=== PATIENT | female | born 1975 | race Caucasian/White ===

== ENCOUNTER 2016-06-29 08:34 | Day surgery (SDC) | payer OTHER ==
[2016-06-28 14:47] LABS: MANUAL DIFF NEEDED? NO
[2016-06-28 14:51] LABS: BASO% 0.3 % (0.0-0.8); EOS# 0.06 X1000 (0.0-0.7); EOS% 0.9 % (0.0-10.0); HEMATOCRIT 40.7 % (37.0-47.0); HEMOGLOBIN 13.4 g/dL (12.0-16.0); LYMPH# 2.54 X1000 (1.2-3.4); LYMPH% 37.7 % (20.5-51.1); MCH 29.8 PG (27-31); MCHC 32.9 g/dL (33-37); MCV 90.4 FL (81-99); MONO# 0.43 X1000 (0.11-0.59); MONO% 6.4 % (1.7-9.3); MPV 10.3 FL (7.4-10.4); NEUT% 54.7 % (42.2-75.2); PLT 188 X1000 (130-400)
[2016-06-28 15:21] LABS: AGAP 12; BUN 10 mg/dL (8-22); CALCIUM 9.5 mg/dL (8.8-10.2); CHLORIDE 104 mmol/L (98-107); COSMO 279; POTASSIUM 4.1 mmol/L (3.5-5.1); SODIUM 141 mmol/L (136-145); TCO2 25 mmol/L (25-35)
[2016-06-29] MEDS ORDERED: LR 1,000 ML ONE ×2 (09:12→15:11)
[2016-06-29] MEDS ORDERED: PEPCID ONE (09:12)
[2016-06-29] MEDS ORDERED: REGLAN ONE (09:12)
[2016-06-29] MEDS ORDERED: DILAUDID ONE (09:19)
[2016-06-29] MEDS ORDERED: TRANSDERM-SCOP ONE (09:19)
[2016-06-29] MEDS ORDERED: ROBINUL ONE (09:20)
[2016-06-29] MEDS ORDERED: ROCEPHIN 1 GM/NS 50 ML IV ONE (09:30)
[2016-06-29] MEDS ORDERED: XYLOCAINE 2% JELLY UROJECT ONE (13:45)
[2016-06-29] MEDS ORDERED: DIPRIVAN 1% ONE (14:05)
[2016-06-29] MEDS ORDERED: FENTANYL ONE (14:05)
[2016-06-29] MEDS: MORPHINE ONE ×5 (14:10→14:30)
[2016-06-29] MEDS: PHENERGAN ONE ×2 (14:40→14:50)
[2016-06-29] MEDS ORDERED: PYRIDIUM ONE (14:57)
[2016-06-29] MEDS ORDERED: PERCOCET-5 ONE (14:57)
[2016-06-29] MEDS ORDERED: ZOFRAN ONE (15:11)
[2016-06-29] MEDS ORDERED: XYLOCAINE-MPF 2% ONE (15:11)
[2016-06-29] MEDS ORDERED: DECADRON ONE (15:11)
[2016-06-29] MEDS ORDERED: QUELICIN (DOSE) ONE (15:11)
--- NOTE | 2016-06-29 15:31 | Diag Imaging Result Document ---
PROCEDURE NAME: RETROGRADES 2 OR 3 FILMS - 06/29/2016 BILATERAL URETEROGRAMS: COMPARISON: None. FINDINGS: The exam was performed by the patient's urologist. Three images were submitted. There was an ill-defined filling defect in the right UPJ and proximal right ureter. There was some right-sided hydronephrosis. The left side appears normal. IMPRESSION: Right-sided hydronephrosis. Lobular, rather large filling defect of the right UPJ and proximal right ureter. A tumor is suspected here.
[2016-06-29 16:20] VITALS: BP 125/78
--- NOTE | 2016-06-29 16:22 | OPERATIVE NOTE ---
PROCEDURE DATE: 06/29/2016 PREOPERATIVE DIAGNOSES: 1. Suprapubic pain. 2. Recurrent urinary tract infection. 3. Overactive bladder. 4. Rule out interstitial cystitis. 5. Synthetic vaginal mesh, rule out perforation to the urethra or the bladder. POSTOPERATIVE DIAGNOSES: 1. No evidence of any interstitial cystitis. 2. Urethral stenosis with significantly trabeculated bladder. No evidence of mesh coming out of the vagina, urethra, or the bladder. PROCEDURE: 1. Cystoscopy. 2. Bilateral retrograde pyelogram. 3. Hydrodistention. 4. Urethral dilatation. 5. Vaginoscopy. ANESTHESIA: General. SURGEON: José Miguel Alejandro MD DESCRIPTION OF PROCEDURE: The patient and her were explained about the risks and benefits and about the procedure itself. She was taken to the operating room and was prepped and draped in dorsal lithotomy position. On gross inspection, there was no significant cystocele or rectocele. There may be a mild degree of cystocele, rectocele, which were within normal limits. I did not see any sling or mesh sticking out of the vagina. The urethra was somewhat stenotic and I dilated it to 28-Urdu with the female sounds. The bladder was inspected, thereafter, with a #21 rigid cystoscope. The bladder was moderate to severely trabeculated. There was no evidence of any interstitial cystitis. 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 Both ureteral orifices looked basically normal and I cannulated both ureters and we did retrograde pyelogram. The upper tracts were well outlined without any abnormalities. Vaginoscopy was done and I did not see any mesh or the sling sticking out. The cystoscope was withdrawn. The patient tolerated the procedure well, 2% lidocaine jelly was instilled into the urethra. PLAN: The plan would be to treat her with some anticholinergics. She may need 1 treatment of silver nitrate, which can be done in the office.
== END 2016-06-29 15:50 | disposition home or self-care (01) ==
LOC: OPS 08:34
PROVIDERS: ATTEND Specialist
DX: N30.30 Trigonitis without hematuria (principal); N32.89 Other specified disorders of bladder; E66.9 Obesity, unspecified; N32.81 Overactive bladder; R30.0 Dysuria; N39.41 Urge incontinence; E03.9 Hypothyroidism, unspecified; Z87.440 Personal history of urinary (tract) infections; R10.2 Pelvic and perineal pain; K21.9 Gastro-esophageal reflux disease without esophagitis; G47.33 Obstructive sleep apnea (adult) (pediatric); M32.9 Systemic lupus erythematosus, unspecified; Z68.33 Body mass index [BMI] 33.0-33.9, adult; R10.9 Unspecified abdominal pain; R35.0 Frequency of micturition; F31.9 Bipolar disorder, unspecified; F17.290 Nicotine dependence, other tobacco product, uncomplicated; J45.909 Unspecified asthma, uncomplicated; K44.9 Diaphragmatic hernia without obstruction or gangrene; Z79.899 Other long term (current) drug therapy; Z82.49 Family history of ischemic heart disease and other diseases of the circulatory system; Z80.8 Family history of malignant neoplasm of other organs or systems
CPT/HCPCS: 74420; 80048; 85025; J0330; J0696; J1100; J1170; J2270; J2405; J2550; J3010; J7120; Q9966